=== PATIENT | female | born 1995 | race African-American/Black ===

== ENCOUNTER 2016-09-05 16:43 | Emergency (ER) | payer MEDICAID ==
[~2016-09-05] VITALS: Ht 177.8 cm; Wt 79.0 kg
[2016-09-05 16:49] VITALS: BP 135/92
== END 2016-09-05 18:26 | disposition left against medical advice (07) ==
LOC: EMS 16:44
DX: H53.8 Other visual disturbances (principal); Z53.21 Procedure and treatment not carried out due to patient leaving prior to being seen by health care provider

== ENCOUNTER 2016-09-05 20:17 | Emergency (ER) | payer SELFPAY ==
[~2016-09-05] VITALS: Ht 177.8 cm; Wt 77.0 kg
[2016-09-05 21:48] VITALS: BP 127/77
== END 2016-09-05 21:50 | disposition home or self-care (01) ==
LOC: EMS 20:18
DX: F45.9 Somatoform disorder, unspecified (principal); H57.8 Other specified disorders of eye and adnexa; F17.210 Nicotine dependence, cigarettes, uncomplicated; R11.2 Nausea with vomiting, unspecified; F12.188 Cannabis abuse with other cannabis-induced disorder
CPT/HCPCS: 99284

== ENCOUNTER 2017-10-25 17:09 | Emergency (ER) | payer SELFPAY ==
[~2017-10-25] VITALS: Ht 175.3 cm; Wt 70.5 kg
[2017-10-25 18:54] VITALS: BP 121/64
== END 2017-10-25 18:59 | disposition home or self-care (01) ==
LOC: EMS 17:16
DX: B88.8 Other specified infestations (principal); R03.0 Elevated blood-pressure reading, without diagnosis of hypertension; F17.210 Nicotine dependence, cigarettes, uncomplicated; F12.10 Cannabis abuse, uncomplicated
CPT/HCPCS: 99281

== ENCOUNTER 2019-05-29 15:03 | Emergency (ER) | payer SELFPAY ==
[~2019-05-29] VITALS: Ht 177.8 cm; Wt 90.9 kg
[2019-05-29 18:29] VITALS: BP 130/90
== END 2019-05-29 21:00 | disposition left against medical advice (07) ==
LOC: EMS 15:03
DX: H57.11 Ocular pain, right eye (principal); Z53.21 Procedure and treatment not carried out due to patient leaving prior to being seen by health care provider

== ENCOUNTER 2019-09-14 17:27 | Inpatient (IN) | payer SELFPAY ==
[~2019-09-14] VITALS: Ht 170.2 cm; Wt 90.9 kg
[2019-09-14] MEDS ORDERED: HYDROmorphone 2 MG/ML SYRINGE IVP ONE ×2 (17:45→18:15)
[2019-09-14] MEDS ORDERED: ONDANSETRON HCL 4 MG/2 ML VIAL IVP ONE (17:45)
[2019-09-14 17:50] LABS: BASOPHILS % (AUTO) 0.4 % (0.0-2.0); HEMATOCRIT 32.6 % (36-46); HEMOGLOBIN 9.9 g/dL (12.0-16.0); LYMPHOCYTES % (AUTO) 12.2 % (22.0-44.0); MEAN CORPUSCULAR HEMOGLOBIN 23.4 pg (26.0-34.0); MEAN CORPUSCULAR HGB CONC 30.4 G/dL (31.0-37.0); MEAN CORPUSCULAR VOLUME 77 fL (80-100); MONOCYTES % (AUTO) 6.3 % (2.0-9.0); NEUTROPHILS # (AUTO) 13.3 K/uL (1.8-7.7); NEUTROPHILS % (AUTO) 80.1 % (40.0-70.0); PLATELET COUNT (AUTO) 212 K/uL (150-450); RED BLOOD CELL COUNT(AUTO) 4.24 MIL/uL (4.00-5.20); RED CELL DISTRIBUTION WIDTH 12.7 % (11.5-14.5)
[2019-09-14 18:01] LABS: ANION GAP 12 mmol/L (8-16); CALCIUM, TOTAL 9.2 mg/dL (8.8-10.5); CARBON DIOXIDE 22 mmol/L (22-29); CHLORIDE 103 mmol/L (98-107); CREATININE 0.63 mg/dL (0.60-1.30); GLOMERULAR FILTR. RATE CALC > 60 mL/min (>60); GLUCOSE,RANDOM 67 mg/dL (70-110); POTASSIUM 3.4 mmol/L (3.5-5.1); SODIUM SERUM 137 mmol/L (136-145); UREA NITROGEN, BLOOD 8 mg/dL (7-18)
[2019-09-14 18:06] LABS: ALANINE AMINOTRANSFERASE 22 U/L (12-78); ALKALINE PHOSPHATASE 87 U/L (46-116); ASPARTATE AMINOTRANSFERASE 18 U/L (15-37); BILIRUBIN,TOTAL 0.2 mg/dL (0.1-1.0); LIPASE 130 U/L (73-393)
[2019-09-14] MEDS ORDERED: METOCLOPRAMIDE HCL 5 MG/ML 2 ML VIAL IVP ONE (18:15)
[2019-09-14 18:26] LABS: B-TYPE NATRIURETIC PEPTIDE 94 pg/mL (0-100)
[2019-09-14 18:57] LABS: HCG,QUANTITATIVE 15284 mIU/mL (0-6)
[2019-09-14] MEDS ORDERED: 0.9% SODIUM CHLORIDE 10 ML SYRINGE IVP PRN (19:45)
[2019-09-14] MEDS ORDERED: HYDROmorphone 2 MG/ML SYRINGE IVP PRN (19:45)
[2019-09-14] MEDS ORDERED: ONDANSETRON HCL 4 MG/2 ML VIAL IVP PRN (19:45)
[2019-09-14 19:57] VITALS: BP 125/93
[2019-09-14] MEDS ORDERED: OXYTOCIN 30 UNITS/LACT RINGERS 500 ML IV ONE ×2 (20:37→20:40)
[2019-09-14] MEDS ORDERED: MAGNESIUM HYDROXIDE SUSPENSION 30 ML UDCUP PO PRN (21:30)
[2019-09-14] MEDS ORDERED: IBUPROFEN 800 MG TABLET PO PRN (21:30)
[2019-09-14] MEDS ORDERED: LIDOCAINE/PF 1% 30 ML VIAL INJ PRN (21:30)
[2019-09-14] MEDS ORDERED: OxyCODONE HCL/ACETAMINOPHEN 5-325 MG TABLET PO PRN ×2 (21:30)
[2019-09-14] MEDS ORDERED: BENZOCAINE 20%/MENTHOL 56 GM SPRAY CANISTER TP PRN (21:30)
[2019-09-14] MEDS ORDERED: GLYCERIN/WITCH HAZEL LEAF 40 PADS JAR TP PRN (21:30)
[2019-09-14] MEDS ORDERED: FentaNYL CITRATE-PF 100 MCG/2 ML VIAL ONE (21:41)
[2019-09-14] MEDS ORDERED: ZOLPIDEM TARTRATE 5 MG TABLET PO PRN (22:00)
[2019-09-14] MEDS ORDERED: FentaNYL CITRATE-PF 100 MCG/2 ML VIAL IVP ONE (22:00)
[2019-09-14] MEDS: CeFAZolin 2 GM/DEXTROSE 50 ML IV SCH (22:44)
[2019-09-14] MEDS ORDERED: INFLUENZA VIRUS VACCINE QVS 2019-20 (3YR+)/PF 60 MCG/0.5 ML SYRINGE IM ONE (22:45)
[2019-09-14] MEDS ORDERED: GENTAMICIN SULFATE 180 MG in DEXTROSE 5%-WATER 50 ML IV SCH (23:00)
[2019-09-15] MEDS: CeFAZolin 2 GM/DEXTROSE 50 ML IV SCH (06:50)
== END 2019-09-15 08:20 | disposition left against medical advice (07) | DRG 779 ==
LOC: EMS 17:29 → 4S 20:45
PROVIDERS: ADMIT Obstetrics & Gynecology; ATTEND Obstetrics & Gynecology
DX: O03.9 Complete or unspecified spontaneous abortion without complication (principal); Z53.29 Procedure and treatment not carried out because of patient's decision for other reasons
CPT/HCPCS: 76805; 86901; 88230; 88305; 88307; 99291; G0480; J0690; J1170; J1580; J2590; J2765; J3010; J7060

== ENCOUNTER 2019-09-29 16:36 | Emergency (ER) | payer SELFPAY ==
[~2019-09-29] VITALS: Ht 177.8 cm; Wt 100.0 kg
[2019-09-29 16:37] VITALS: BP 125/78
== END 2019-09-29 17:00 | disposition home or self-care (01) ==
LOC: EMS 16:36
DX: Z76.0 Encounter for issue of repeat prescription (principal); F41.9 Anxiety disorder, unspecified; F32.9 Major depressive disorder, single episode, unspecified; F17.210 Nicotine dependence, cigarettes, uncomplicated; F12.90 Cannabis use, unspecified, uncomplicated